=== PATIENT | female | born 1940 | race Caucasian/White ===

== ENCOUNTER → 2017-12-31 | Outpatient (CLI) | payer MEDICARE, BC ==
[~2017-12-31] MED LIST: CELE200C PO; CHOL10003 PO; CYAN50003 SL; DULO60CA6 PO; FLUT1DIS IH; FURO-69 PO; HYDR-2758 PO; IOHEXOL 180 MG/ML 10 ML VIAL. ONE; LIDO700A39 TP; LIDOCAINE 2% PF 2ML VIAL. ONE; LINA5TAB4 PO; LISI1TAB3 PO; MAGN400C PO; OMEG-165 PO; POTA20TA82 PO; SIMV40TA3 PO; TIZA4TAB PO; TRAZ-85 PO; VITA400C36 PO; methylPREDNISolone ACETATE 40 MG/ML VIAL. ONE; methylPREDNISolone ACETATE 80 MG/ML VIAL. ONE
--- NOTE | 2017-12-31 23:23 | PAIN ---
DATE OF SERVICE: 12/31/2017 INITIAL CONSULTATION FOR PAIN CLINIC CHIEF COMPLAINT: Low back and bilateral lower extremity pain. HISTORY OF PRESENT ILLNESS: This is a 77-year-old female who presents with history of pain since about June 2017 in the low back and bilateral lower extremities. No specific injury or action she is aware of. This became more noticeable day by day to the point where it is radiating to the bilateral lower extremities, mostly in the lateral anterior aspect of the thigh, posterior thighs, lateral and medial calves and posterior calves bilaterally, essentially right equal to left. The patient reports it is worse with walking, standing, changing positions and sitting for prolonged periods. She has been sleeping in a reclining chair for the past several months because of the pain. She is unable to lie flat or get a good night sleep on a flat bed. The patient reports every night it awakens her from sleep at least 3-4 times, does not affect her bowel or bladder control, but does affect her ability to walk. She is using a walker and has that with her today as well. The patient has had physical therapy in the past, also had an epidural injection in the year 1999, she believes, at an outside facility which was helpful as well as the physical therapy which she had in July of this year which did help some too, but she has been doing stretching and strengthening exercises on her own but without significant improvement. The patient has tried hydrocodone as well as Celebrex, neither one with significant decrease in pain. The patient did have MRI scan of the lumbar spine dated 11/23/2017 showing central canal stenosis at L3-L4 with [id number] inferior neural foraminal encroachment bilaterally. L4-L5 shows narrowing with central canal stenosis, also severe bilateral neural foraminal encroachment. L5-S1 shows severe facet arthropathy with at least partial fusion of the facet joints at that level. The patient rates her disability rate from 0-10, 10 being the worst, as a 9 with family and home responsibilities and social activity and sexual behavior, 10 with recreation, 8 with occupation, 4 with self-care and 0 with life-support activities. The patient reports no loss of motor function, but significant fatigability of the bilateral lower extremities with walking even more than about 10 minutes. PAST MEDICAL HISTORY: Significant for arthritis, hypertension, shortness of breath, type 2 diabetes, hearing loss, glaucoma. PREVIOUS SURGERIES: Include hysterectomy, cholecystectomy, Achilles tendon repair bilaterally in the past. CURRENT MEDICATIONS: Include Celebrex, Advair, magnesium, tizanidine, Tradjenta, simvastatin, lisinopril, trazodone, Lasix, potassium, lidocaine, magnesium, omega oils, vitamin B12, vitamin D3, vitamin E and hydrocodone. ALLERGIES: The patient has no known drug allergies. FAMILY HISTORY: Significant for cancers. SOCIAL HISTORY: The patient does not drink alcohol; does not smoke; does not use any illegal, illicit, or recreational drugs. She is , lives with her spouse and is currently retired and lives locally in [place], [place]. REVIEW OF SYSTEMS: Positive for those items mentioned in history of present illness. All systems reviewed and otherwise negative. It is complete, full and well documented on the patient's chart. PHYSICAL EXAMINATION: VITAL SIGNS: Today, the patient's blood pressure is 139/65, pulse is 85, respirations 18, temperature 98.6 degrees Fahrenheit, height is 5 feet 6 inches, weight is 232 pounds. GENERAL: The patient is awake, alert, oriented, appropriate, very pleasant demeanor. HEENT: Head shows normocephalic, atraumatic. Extraocular movements intact and symmetrical. Oral cavity: Mucous membranes moist and pink. Dentition is intact. NECK: Shows anterior throat supple without palpable lymphadenopathy noted. Swallow reflex symmetrical. CHEST: Shows normal on inspection. Breath sounds clear to auscultation bilaterally. HEART: Shows S1, S2 clear. No murmurs auscultated. ABDOMEN: Soft, nontender, nondistended. No palpable organomegaly is noted. No rebound or guarding demonstrated. BACK: Shows spine grossly in the midline, normal-appearing cervical lordotic curvature, thoracic kyphotic curvature and lumbar lordotic curvature. No previous bruises or scars are noted. The patient's lumbar paraspinous musculature shows symmetrical on inspection and palpation. Some moderate tenderness with palpation but only diffusely without significant radiation. The patient has good rotational motion of lumbar spine, both laterally greater than 10 degrees right and left as well as extension greater than 10 degrees, forward flexion 45 degrees without difficulty. No tenderness over the sacrum or sacroiliac regions over the spinous processes. EXTREMITIES: The patient's lower extremities show deep tendon reflexes at 1+ in the patellar and tendo-calcaneus tendons are equal. Motor exam is approximately 4 on a scale of 5 and symmetrical with dorsiflexion, extension, quadriceps and hamstring flexion. Peripheral pulses are 1+ posterior tibial. No peripheral edema is noted. Straight leg raise noted to be negative bilaterally. Gaenslen's and Cristofer's maneuvers are negative bilaterally as well. The patient is able to stand, stand on her toes but loses balance fairly quickly with trying to balance on her tiptoes. She walks with a slight shuffling gait and again is using a walker to ambulate which she has with her on her visit today. SKIN: Shows warm and dry, good turgor. No sores, rashes, or bruising. IMPRESSION: 1. This is a 77-year-old female with low back, bilateral lower extremity pain consistent with her radicular pattern for about 6 months now without any specific injury or action she is aware of. 2. MRI scan of the lumbar spine as noted. 3. Type 2 diabetes. 4. Hypertension. 5. Arthritis. PLAN: Options were discussed with the patient including conservative medical management with physical therapy and interventional technique. The patient would like to pursue interventional techniques. We discussed a lumbar epidural steroid injection today using descriptions as well as anatomical models to describe the procedure. Risks were then discussed including but not limited to bleeding, infection, possibility of epidural hematoma and subsequent neurological compromise, dural puncture, headaches, spinal cord and/or nerve damage, side effects of steroid medication and poor results regarding pain control. The patient understands and wished to proceed. The patient will return to clinic in approximately 2 weeks for followup, was counseled as to return appointment, activity level and side effects to be aware of. DIAGNOSES: Lumbar radiculopathy with lumbar degenerative disk disease and lumbar spinal stenosis. PROCEDURE: Lumbar epidural steroid injection, translaminar approach at the L4-L5 level using C-arm fluoroscopic guidance under sterile prep and drape using local anesthetic. MEDICATION INJECTED: A total of 120 mg Depo-Medrol plus 10 mL of preservative-free normal saline, 2 mL of Isovue for contrast. CONDITION AT DISCHARGE: Stable. The patient tolerated the procedure well and had no complications. JER JIMENEZ MD DR: JOHANNA/jean marie JOB#: [id number] / [id number] Manuelito Hagen
== END | disposition home or self-care (01) ==
LOC: PNCL 08:41
PROVIDERS: ATTEND Anesthesiology
DX: M51.16 Intervertebral disc disorders with radiculopathy, lumbar region (principal); M48.061 Spinal stenosis, lumbar region without neurogenic claudication; I10 Essential (primary) hypertension; M19.90 Unspecified osteoarthritis, unspecified site; E11.39 Type 2 diabetes mellitus with other diabetic ophthalmic complication; H42 Glaucoma in diseases classified elsewhere; H91.90 Unspecified hearing loss, unspecified ear; Z90.49 Acquired absence of other specified parts of digestive tract; Z90.710 Acquired absence of both cervix and uterus; Z98.890 Other specified postprocedural states; Z79.899 Other long term (current) drug therapy; Z79.01 Long term (current) use of anticoagulants; Z79.84 Long term (current) use of oral hypoglycemic drugs
CPT/HCPCS: 62323; J1030; J1040; J2001; Q9965

== ENCOUNTER → 2018-02-08 | Outpatient (CLI) | payer MEDICARE, BC | END | disposition home or self-care (01) | LOC: PNCL 09:38 | PROVIDERS: ATTEND Anesthesiology | DX: M51.16 Intervertebral disc disorders with radiculopathy, lumbar region (principal); M48.061 Spinal stenosis, lumbar region without neurogenic claudication | CPT/HCPCS: 62323; J1030; J1040; J2001; Q9965 ==